=== PATIENT | female | born 1995 | race Two or more races ===

== ENCOUNTER 2020-04-30 20:17 | Observation (INO) | payer OTHER ==
[~2020-04-30] VITALS: Ht 152.4 cm; Wt 88.0 kg
[~2020-04-30 20:17] MED LIST: METO200T47 PO
[2020-04-30 20:35] VITALS: BP 122/72
[2020-04-30] MEDS ORDERED: INDOMETHACIN 50 MG CAPSULE ONE (21:54)
[2020-04-30] MEDS ORDERED: INDOMETHACIN 25 MG CAPSULE PO ONE (22:00)
[2020-04-30] MEDS ORDERED: INDOMETHACIN 50 MG CAPSULE PO ONE (22:00)
[2020-05-01] MEDS ORDERED: INDOMETHACIN 50 MG CAPSULE PO ONE (04:00)
== END 2020-05-01 08:33 | disposition home or self-care (01) ==
LOC: LDOP 20:17 → LDIP 23:33
PROVIDERS: ADMIT Obstetrics & Gynecology; ATTEND Obstetrics & Gynecology
DX: O26.892 Other specified pregnancy related conditions, second trimester (principal); R10.2 Pelvic and perineal pain; O34.02 Maternal care for unspecified congenital malformation of uterus, second trimester; Q51.3 Bicornate uterus; O99.512 Diseases of the respiratory system complicating pregnancy, second trimester; J45.909 Unspecified asthma, uncomplicated; O99.342 Other mental disorders complicating pregnancy, second trimester; F32.9 Major depressive disorder, single episode, unspecified; O99.352 Diseases of the nervous system complicating pregnancy, second trimester; G43.909 Migraine, unspecified, not intractable, without status migrainosus; O99.412 Diseases of the circulatory system complicating pregnancy, second trimester; I47.1 Supraventricular tachycardia; O26.872 Cervical shortening, second trimester; Z3A.23 23 weeks gestation of pregnancy; Z79.899 Other long term (current) drug therapy
CPT/HCPCS: 99211; G0378; G0463

== ENCOUNTER 2020-05-22 22:37 | Outpatient (CLI) | payer OTHER ==
[~2020-05-22] VITALS: Ht 152.4 cm; Wt 88.6 kg
[2020-05-22 23:13] LABS: MICROSCOPIC INDICATED
[2020-05-22 23:20] VITALS: BP 127/65
== END 2020-05-23 00:10 | disposition home or self-care (01) ==
LOC: LDOP 22:37
PROVIDERS: ATTEND Obstetrics & Gynecology
DX: O26.892 Other specified pregnancy related conditions, second trimester (principal); R10.9 Unspecified abdominal pain; Z3A.26 26 weeks gestation of pregnancy
CPT/HCPCS: 81001; 84112; 87086; 99211; G0463

== ENCOUNTER 2020-06-13 23:31 | Observation (INO) | payer OTHER ==
[~2020-06-13] VITALS: Ht 152.4 cm; Wt 92.2 kg
[2020-06-14 00:03] LABS: MICROSCOPIC INDICATED
[2020-06-14 01:24] LABS: BASOPHILS % (AUTO) 1 % (0-1); EOSINOPHILS % (AUTO) 1 % (1-7); LYMPHOCYTES % (AUTO) 16 % (22-44); MEAN CORPUSCULAR HEMOGLOBIN 29.5 pg (27.0-34.8); MEAN CORPUSCULAR HGB CONC 33.4 g/dL (32.4-35.8); MEAN PLATELET VOLUME 11.2 fL (7.4-10.4); MONOCYTES % (AUTO) 7 % (2-9); NEUTROPHILS % (AUTO) 76 % (42-75); PLATELET COUNT 186 x10^3/uL (130-400); RED BLOOD COUNT 3.95 x10^6/uL (3.82-5.3); RED CELL DISTRIBUTION WIDTH 12.7 % (9.6-15.2)
[2020-06-14 01:28] LABS: MD NO
[2020-06-14 01:30] LABS: ALANINE AMINOTRANSFERASE 12 U/L (12-78); ALBUMIN 2.6 g/dL (3.4-5.0); ANION GAP 8 mmol/L (5-15); CALCIUM 8.8 mg/dL (8.5-10.1); CHLORIDE 109 mmol/L (98-107); CREATININE 0.31 mg/dL (0.55-1.02)
[2020-06-14 01:32] LABS: ALKALINE PHOSPHATASE 86 U/L (45-117); BILIRUBIN,TOTAL 0.2 mg/dL (0.2-1.0); TOTAL PROTEIN 6.2 g/dL (6.4-8.2)
== END 2020-06-14 04:16 | disposition home or self-care (01) ==
LOC: LDOP 23:31 → LDIP 06-14 02:17
PROVIDERS: ADMIT Obstetrics & Gynecology; ATTEND Obstetrics & Gynecology
DX: O26.893 Other specified pregnancy related conditions, third trimester (principal); R10.9 Unspecified abdominal pain; O26.873 Cervical shortening, third trimester; O34.03 Maternal care for unspecified congenital malformation of uterus, third trimester; Q51.3 Bicornate uterus; Z3A.29 29 weeks gestation of pregnancy; Z79.899 Other long term (current) drug therapy
CPT/HCPCS: 36415; 59025; 76805; 80053; 81001; 85025; 87086; G0378

== ENCOUNTER 2020-06-29 16:44 | Outpatient (CLI) | payer OTHER ==
[~2020-06-29] VITALS: Ht 152.4 cm; Wt 94.1 kg
[2020-06-29] MEDS ORDERED: PREN1TAB60 PO (17:06)
[2020-06-29] MEDS ORDERED: ACETAMINOPHEN 325 MG TABLET ONE (17:14)
[2020-06-29] MEDS ORDERED: ACETAMINOPHEN 650 MG SUPP ONE (17:14)
[2020-06-29 17:22] LABS: MICROSCOPIC INDICATED
[2020-06-29] MEDS ORDERED: PLEASE ENTER HEIGHT AND WEIGHT MC SCH (17:30)
[2020-06-29] MEDS ORDERED: ACETAMINOPHEN 325 MG TABLET PO PRN (17:30)
[2020-06-29 17:36] VITALS: BP 121/67
[2020-06-29 18:47] LABS: BASOPHILS % (AUTO) 1 % (0-1); EOSINOPHILS % (AUTO) 1 % (1-7); LYMPHOCYTES % (AUTO) 13 % (22-44); MD NO; MEAN CORPUSCULAR HEMOGLOBIN 29.2 pg (27.0-34.8); MEAN CORPUSCULAR HGB CONC 33.1 g/dL (32.4-35.8); MEAN PLATELET VOLUME 11.1 fL (7.4-10.4); MONOCYTES % (AUTO) 7 % (2-9); NEUTROPHILS % (AUTO) 79 % (42-75); PLATELET COUNT 170 x10^3/uL (130-400); RED BLOOD COUNT 3.98 x10^6/uL (3.82-5.3); RED CELL DISTRIBUTION WIDTH 12.9 % (9.6-15.2)
[2020-06-29 18:54] LABS: ALANINE AMINOTRANSFERASE 38 U/L (12-78); ALBUMIN 2.5 g/dL (3.4-5.0); ANION GAP 6 mmol/L (5-15); CALCIUM 8.4 mg/dL (8.5-10.1); CHLORIDE 109 mmol/L (98-107); CREATININE 0.49 mg/dL (0.55-1.02)
[2020-06-29 18:56] LABS: ALKALINE PHOSPHATASE 112 U/L (45-117); BILIRUBIN,TOTAL 0.2 mg/dL (0.2-1.0); TOTAL PROTEIN 6.3 g/dL (6.4-8.2)
[2020-06-29 19:02] LABS: BILIRUBIN, DIRECT < 0.1 mg/dL (0.1-0.2)
== END 2020-06-29 19:25 | disposition home or self-care (01) ==
LOC: LDOP 16:44
PROVIDERS: ATTEND Obstetrics & Gynecology
DX: O26.893 Other specified pregnancy related conditions, third trimester (principal); R10.9 Unspecified abdominal pain; O42.913 Preterm premature rupture of membranes, unspecified as to length of time between rupture and onset of labor, third trimester; O26.873 Cervical shortening, third trimester; Z3A.31 31 weeks gestation of pregnancy; Z79.899 Other long term (current) drug therapy
CPT/HCPCS: 59025; 80053; 81001; 82248; 82570; 84112; 84156; 84550; 85025; 87086; 89060; Q0114

== ENCOUNTER 2020-07-10 19:47 | Outpatient (CLI) | payer OTHER ==
[~2020-07-10] VITALS: Ht 152.4 cm; Wt 94.1 kg
[~2020-07-10 19:47] MED LIST changes: +PREN1TAB60 PO
[2020-07-10 20:26] VITALS: BP 117/74
[2020-07-10 20:34] LABS: MICROSCOPIC INDICATED
[2020-07-10] MEDS ORDERED: PROG100C16 VG (23:41)
[2020-07-11] MEDS ORDERED: MAGNESIUM SULF. PMX 20GM/500ML 500 ML IV ONE (00:09)
[2020-07-11] MEDS ORDERED: BETAMETHASONE 6 MG/ML, 5ML IM ONE (00:09)
[2020-07-23] MEDS ORDERED: IBUP-1222 PO (09:54)
== END 2020-07-10 21:10 | disposition home or self-care (01) ==
LOC: LDOP 19:47
PROVIDERS: ATTEND Obstetrics & Gynecology
DX: O41.03X0 Oligohydramnios, third trimester, not applicable or unspecified (principal); O62.9 Abnormality of forces of labor, unspecified; Z3A.31 31 weeks gestation of pregnancy
CPT/HCPCS: 59025; 76815; 81001; 87086; 93005